=== PATIENT | female | born 1980 ===

== ENCOUNTER → 2022-12-17 10:20 | Outpatient (CLI) | payer BC, SELFPAY ==
--- NOTE | ~2022-12-17 | MR_ITS ---
MRI of the lumbar spine Clinical History: Back pain Technique: Axial T2-weighted images, and sagittal T1-weighted, T2-weighted, and T2 fat-sat images wer e acquired. Findings: There is no fracture or subluxation of the lumbar spine. Vertebral bodies maintain normal h eight and alignment. No suspicious bone marrow signal abnormality seen. At L1-L2, there is no disc bulge or herniation. There is mild facet arthropathy. No spinal canal sten osis or neural foraminal narrowing. At L2-L3, there is no disc bulge or herniation. There is mild facet arthropathy. No central canal nathan nosis or neural foraminal narrowing. L3-L4, there is minimal disc bulge with mild to moderate facet arthropathy. No central canal stenosis . Bilateral neural foramina are preserved. At L4-L5, there is a prominent central to right paracentral disc protrusion, which minimally effaces the ventral thecal sac. There is moderate to advanced facet arthropathy. There is mild bilateral neur al foraminal narrowing. At L5-S1, there is no disc bulge or herniation. There is minimal facet arthropathy. No central canal stenosis or neural foraminal narrowing. Paravertebral soft tissues are unremarkable. Impression: Mild degenerative spondylosis overall, worst at L4-L5. Please see details above. Reviewed, dictated and finalized at [facility]. Impression: Mild degenerative spondylosis overall, worst at L4-L5. Please see details above .
== END ==
DX: M47.896 Other spondylosis, lumbar region (principal)
CPT/HCPCS: 72148